=== PATIENT | female | born 1955 | race Caucasian/White ===

== ENCOUNTER 2021-07-17 01:15 | Day surgery (SDC) | payer OTHER, SELFPAY ==
[2021-07-14 11:16] VITALS: BMI 27.1
--- NOTE | 2021-07-14 11:32 | PC.NURSE ---
Report to the Outpatient Waiting Room, entrance under the green pavilion located off [facility], at time _7:00AM on date __07/17/21 . OR Time: __9:00AM . - You and your visitor will be asked a series of questions to screen for COVID 19 for your protection. - Only one visitor is allowed at this time. - The patient visitor is requested to leave or wait in car when not with patient. - A mask is required within the hospital. Patients may have clear liquids (water, carbonated beverages, clear teas, apple juice) until 3 hours prior to surgery with a maximum of 20 ounces. - No food from midnight until time of surgery - Infants may have breast milk until 4 hours before surgery, formula 6 hours prior to surgery. - Children will be allowed to drink immediately following surgery. If applicable, please bring a bottle or sippy cup to assist with drinking. Juice, water, soda, and popsicles are readily available. For infants on formula, please bring formula the day of surgery. Pacifiers are allowed. Take the following medications with a SIP of water the morning of surgery: ____NONE (TAKES LEVOTHYROXINE AT BEDTIME) Medications to discontinue per physician ___ALL VITAMINS/SUPPLEMENTS 3 DAYS PRE-OP-LAST DOSE 07/14/21. PT STOPPED ASPIRIN ON 07/08/21 Please no make-up, nail maltese, hairspray, perfume, deodorant, or body powder the day of surgery. No jewelry (including any body piercings) or valuables the day of surgery, leave them at home. Please take a shower or bath the night before, or the morning of, surgery with an antibacterial soap. Wear comfortable, loose fitting clothing. Children are encouraged to wear pajamas. - Jewelry must be removed prior to entering the operating room. Rings and piercings that are not removed may be cut off. - The hospital will not accept responsibility for valuables. - Please leave all valuables, including medications, at home the day of surgery. If you are going home after surgery, a licensed batch mixing truck driver must drive you home. - NO public transportation without another adult. - We recommend that an adult stay with you for 24 hours following discharge. - We also recommend that you do not drive, make important decision, drink alcoholic beverages, or take any drugs that were not prescribed by your health care provider for at least 24 hours after your discharge time. For Pediatric surgeries, we recommend two adults accompany the child home (only one inside the building at this time). Follow any additional instructions given to you from your surgeon. If you or anyone in your household have experienced Covid symptoms in the past week, please notify your surgeon or the nurse liaison at the phone number below for possible testing. Telephone instructions given to __PATIENT and asked if any additional questions and then verbalized understanding. Patient advised to call surgeon office or pre surgery nurse liaison [phone] if any additional questions.
--- NOTE | 2021-07-15 17:16 | PM.IMHP ---
H&P: HPI History of Present Illness Date/Time: 07/15/21 17:16 65-year-old female with postmenopausal bleeding. She is on bioidentical hormone replacement. She noticed some spotting ultrasound was unable to evaluate the endometrium sufficiently so she will therefore undergo hysteroscopy and D&C risks and benefits were reviewed in full. She had all questions answered and asked to proceed. She did received the [employer] handout entitled hysteroscopy as well as dilatation curettage respectively Chief Complaint: postmenopausal bleeding Review of Systems Review of Systems: All systems reviewed & are unremarkable except as noted in HPI and below [facility] Social History Social History Smoking packs per day: 0.2 Smoking cigarettes per day: 4.0 Years smoked: 4 Smoking pack-years: 0.80 Smoking status: Former smoker Tobacco type: cigarettes Smoking end date: 08/29/99 Alcohol intake: current Drinks per week: 7 Substance use: never Living arrangements: with family Additional [facility] Spiritual care concerns: No Meds Home Medications and Allergies Home Medications Medication Instructions Recorded Confirmed Type Bioidentical Hormone Replaceme 1 applic TOPICAL DAILY 07/14/21 07/14/21 History aspirin [Adult Aspirin EC Low 81 mg PO DAILY 07/14/21 07/14/21 History Strength] calcium carbonate [Caltrate 600] 600 mg PO DAILY 07/14/21 07/14/21 History clotrimazole-betamethasone 1 applic TOPICAL BID 07/14/21 07/14/21 History levothyroxine 75 mcg PO HS 07/14/21 07/14/21 History multivitamin [Daily Multiple] 1 tablet PO DAILY 07/14/21 07/14/21 History potassium chloride 10 meq PO HS 07/14/21 07/14/21 History Allergies Allergy/AdvReac Type Severity Reaction Status Date / Time Sulfa (Sulfonamide Allergy BERNADINE Verified 07/14/21 11:10 Antibiotics) DONNA SYNDROME Exam Const: General: no acute distress Eyes: General: appearance normal, both eyes and all related structures Neck: Neck: supple and no JVD Thyroid: thyroid normal Resp: Effort & Inspection: normal respiratory effort Auscultation: clear to auscultation bilaterally Cardio: Rate: regular rate Rhythm: regular rhythm GI: Inspection: non-distended GI Palp: Yes Soft to palpation, No Tenderness to palpation present (GI) and No Guarding due to palpation present (GI) Auscultation: normal bowel sounds : General: Yes bladder normal to palpation External Female Exam: normal external appearance Speculum Exam - Vagina: normal vaginal discharge and No vaginal bleeding Speculum Exam - Cervix: nontender Bimanual exam- vagina & uterus: bladder normal to palpation and No Cervical tenderness present OB/external & speculum: No vaginal bleeding Skin: General skin exam: no rashes or lesions noted Extrem: General: normal to inspection and no edema Psych: Mental Status: mental status grossly normal Affect: normal affect Assessment and Plan Additional Plan impression: Postmenopausal bleeding Plan: Hysteroscopy/dilatation curettage
--- NOTE | 2021-07-16 13:50 | WPDANESEPPF ---
Anes - Initial Pre Proc Eval Procedure: Operation Date: 07/17/21 09:30 Proposed Procedures p Hysteroscopy Dilation and Curettage - Tito Vazquez MD Date/Time: 07/16/21 13:50 Surgeon: Tito Vazquez MD Pre Op Diagnosis: post menopausal bleeding Patient Data Age: 65 Gender: F Height: 1.66 m Weight: 75 kg Allergies Allergy/AdvReac Type Severity Reaction Status Date / Time Sulfa (Sulfonamide Allergy BERNADINE Verified 07/14/21 11:10 Antibiotics) DONNA SYNDROME Home Medications Medication Instructions Recorded Confirmed Type Bioidentical Hormone Replaceme 1 applic TOPICAL DAILY 07/14/21 07/14/21 History aspirin [Adult Aspirin EC Low 81 mg PO DAILY 07/14/21 07/14/21 History Strength] calcium carbonate [Caltrate 600] 600 mg PO DAILY 07/14/21 07/14/21 History clotrimazole-betamethasone 1 applic TOPICAL BID 07/14/21 07/14/21 History levothyroxine 75 mcg PO HS 07/14/21 07/14/21 History multivitamin [Daily Multiple] 1 tablet PO DAILY 07/14/21 07/14/21 History potassium chloride 10 meq PO HS 07/14/21 07/14/21 History hydrocodone-acetaminophen 1 tablet PO Q4H PRN #20 tablet 07/17/21 Rx Patient hx anesthesia problems: none Family hx anesthesia problems: none Results Review: All pre-operative results and documents have been reviewed as part of the pre-operative evaluation. [facility] Past Medical History Medical History (Updated 07/17/21 @ 07:11 by Tito Vazquez MD) Hypothyroidism Overweight (BMI 25.0-29.9) Social History Social History Smoking packs per day: 0.2 Smoking cigarettes per day: 4.0 Years smoked: 4 Smoking pack-years: 0.80 Smoking status: Former smoker Tobacco type: cigarettes Smoking end date: 08/29/99 Alcohol intake: current Drinks per week: 7 Substance use: never Living arrangements: with family Additional living arrangements comments: [facility] Spiritual care concerns: No Anes - Eval Final PreProcedure Day of Procedure 07/16/21 13:50 Patient weight: overweight Heart: regular rate and rhythm Lungs: clear to auscultation and normal air movement Airway: Mallampati scale class II Neurological: alert and oriented Last oral intake: >/= 8 hours ASA classification: II Emergent: no Anesthetic plan: proceed Anesthesia type and monitoring: general GIVS and LMA Results Review: All pre-operative results and documents have been reviewed as part of the pre-operative evaluation. Informed Consent: The patient's anesthetic plan and its attendant risks and benefits were discussed with the patient/family/POA. Questions were solicited and answers provided to the satisfaction of the patient/family/POA.
--- NOTE | 2021-07-17 07:10 | WPDHPUPDATE1 ---
History and Physical Update Update Date/Time: 07/17/21 07:10 History and Physical has been reviewed, including an updated exam of the patient. There are NO changes in the patient's condition. Risks, benefits, and alternatives have been discussed and questions answered. Patient agrees to proceed with procedure.
[2021-07-17] MEDS: ACETAMINOPHEN 500 MG TABLET 1000 MG PO (08:20)
[2021-07-17] MEDS: LACTATED RINGERS 1,000 ML 30 ML IV CONT (08:40)
[2021-07-17 08:47] VITALS: BP 150/55; PULSE 59; RESP 16; TEMP 36.6; O2SAT 100
[2021-07-17 08:49] LABS: Hematocrit 38.2 % (37.0-47.0); Hemoglobin 12.6 g/dL (12.0-15.0)
[2021-07-17] MEDS: KETOROLAC 30 MG/ML VIAL (*BKC) IV PUSH (09:33)
--- NOTE | 2021-07-17 09:44 | P.OP_ITS ---
Procedure Note - Detailed Date of Procedure 07/17/21 Pre-op Diagnosis post menopausal bleeding Post-op Diagnosis Same Procedure Performed Hysteroscopy/dilatation and curettage Surgeon Tito Vazquez MD Anesthesia MAC and Local Indications This 65-year-old female on bioidentical hormones who had postmenopausal bleeding. She does have fibroids in her uterus but none were seen during this procedure Findings Uterus sounded to 7cm. Benign atrophic endometrium with some old blood present Description of Procedure The patient was prepped draped in the normal sterile fashion placed in the dorsal lithotomy position. Under excellent IV sedation weighted speculum placed in posterior fornix vagina. Anterior lip of the cervix grasped with single- tooth tenaculum. 2.5cc of 1% xylocaine anesthesia placed at 2, 4, 8, 10:00 a.m. of the cervix. Uterus sounded to 7cm. Serial dilatation with fragmented dilators performed followed by passage of the 5mm visualizing hysteroscope using normal saline as visualizing medium. Very benign endometrial tissue was seen the risks and some old blood present appeared atrophic. No abnormality seen. The uterus was scraped over the entire 360? until a good grating sound was heard. When instruments remove all were accounted for. Blood loss estimated 5cc. All sponge, needle, instrument counts were correct. There were no immediate complications Estimated Blood Loss 5 Drains No Packing No Pathology Yes Complications No immediate complications Condition Stable Disposition PACU
[2021-07-17 09:47] VITALS: BP 130/63; PULSE 57; RESP 16; O2SAT 94
[2021-07-17 10:15] VITALS: BP 133/62; PULSE 57; RESP 20
[2021-07-17 10:45] VITALS: BP 143/69; PULSE 53; RESP 20
== END 2021-07-17 11:00 | disposition home or self-care (01) ==
PROVIDERS: PCP Family Medicine; Visit Provider Obstetrics & Gynecology
PROC: 0U5B8ZZ Destruction of Endometrium, Via Natural or Artificial Opening Endoscopic (ICD-10-PCS; CPT 58563; principal; 2021-07-17 09:30)
DX: N95.0 Postmenopausal bleeding (principal); D25.9 Leiomyoma of uterus, unspecified; N85.8 Other specified noninflammatory disorders of uterus; E03.9 Hypothyroidism, unspecified; Z79.82 Long term (current) use of aspirin; Z87.891 Personal history of nicotine dependence
CPT/HCPCS: 58558; 36415; 85014; 85018; 88305; A9270; J1100; J1885; J2250; J2405; J2704; J3010; J7030; J7120